=== PATIENT | female | born 1945 | race Caucasian/White ===

== ENCOUNTER 2018-06-26 14:55 | Emergency (ER) | payer MEDICARE, BC ==
--- NOTE | 2018-06-26 16:12 | EDM.PDOC ---
ED HPI GENERAL MEDICAL PROBLEM - General Chief Complaint: Lower Extremity Injury/Pain Stated Complaint: fell, hip pain Time Seen by Provider: 06/26/18 15:40 Source of Information: Reports: Patient History Limitations: Reports: No Limitations - History of Present Illness INITIAL COMMENTS - FREE TEXT/NARRATIVE: Pt states on Saturday at about 1445 her hip gave out and she fell. She denies tripping or blacking out. She states that the hip just went out from under her. Friend stopped to see her today and found her. She has multiple abrasions to her arms, knees and excoriated to perineum and under her breasts. Has abrasion on upper back. Right hip is externally rotated and shortened. Face has abrasion to chin and face is edematous. Has been incontinent of stool and urine. She denies blacking out or hitting head. Denies any other injury. Onset Date: 06/24/18 Onset Time: 14:45 Location: Reports: Lower Extremity, Right Quality: Reports: Sharp Right Hip Pain Score (Numeric/FACES): 3 - Related Data Allergies Allergy/AdvReac Type Severity Reaction Status Date / Time filgrastim [From Neupogen] Allergy Pain Verified 05/25/18 01:46 sulfamethoxazole Allergy Other Verified 05/25/18 01:46 [From Bactrim] trimethoprim [From Bactrim] Allergy Other Verified 05/25/18 01:46 Home Meds: Home Meds Calcium Carbonate/Vitamin D3 [Calcium 600 + Vit D 400] 1 each PO TID 01/04/14 [ History] Furosemide [Lasix] 40 mg PO BID 01/04/14 [History] Multivitamin [Multiple Vitamins] 1 each PO DAILY 01/04/14 [History] Oxybutynin 5 mg PO BID 01/04/14 [History] Potassium Chloride [Klor-Con 10] 20 meq PO DAILY 01/04/14 [History] Warfarin [Coumadin] 5 mg PO MOWEFR 01/04/14 [History] Warfarin [Coumadin] 7.5 mg PO SUTUTHSA 01/04/14 [History] Clobetasol [Clobetasol 0.05%] 1 applic TOP MOWEFR 04/03/18 [History] Magnesium 500 mg PO DAILY 04/03/18 [History] Cholecalciferol (Vitamin D3) [Vitamin D3] 5,000 unit PO DAILY 05/25/18 [History] Past Medical History Cardiovascular History: Reports: Blood Clots/VTE/DVT, Other (See Below) Respiratory History: Reports: PE Hematologic History: Reports: Other (See Below) Oncologic (Cancer) History: Reports: Breast, Colon - Infectious Disease History 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 , MRSA - Past Surgical History Musculoskeletal Surgical History: Reports: Hip Replacement, Knee Replacement Social & Family History - Tobacco Use Smoking Status *Q: Never Smoker - Caffeine Use Caffeine Use: Reports: Coffee, Soda - Recreational Drug Use Recreational Drug Use: No - Living Situation & Occupation Living situation: Reports: , Alone Occupation: Retired Review of Systems - Review of Systems Review Of Systems: See Below Constitutional: Reports: No Symptoms Eyes: Reports: Other (eyes are red) Ears: Reports: No Symptoms Nose: Reports: No Symptoms Mouth/Throat: Reports: No Symptoms Respiratory: Reports: No Symptoms Cardiovascular: Reports: No Symptoms GI/Abdominal: Reports: No Symptoms Genitourinary: Reports: No Symptoms Musculoskeletal: Reports: Joint Pain (right hip) Skin: Reports: Other (see HPI) Neurological: Denies: Confusion, Headache, Numbness, Tingling Psychiatric: Denies: Confusion ED EXAM, GENERAL - Physical Exam Exam: See Below Exam Limited By: No Limitations General Appearance: Alert, WD/WN, Moderate Distress Eye Exam: Bilateral Eye: Conjunctival Injection Ears: Normal External Exam, Normal Canal, Normal TMs Nose: Other (redness to the nose, and chin.) Throat/Mouth: Normal Inspection, Normal Oropharynx Head: Atraumatic, Normocephalic, Facial Swelling. No: Facial Tenderness Neck: Normal Inspection, Supple, Non-Tender, Full Range of Motion Respiratory/Chest: No Respiratory Distress, Lungs Clear, Normal Breath Sounds Cardiovascular: Regular Rate, Rhythm, No Edema GI/Abdominal: Normal Bowel Sounds, Soft, Non-Tender, No Organomegaly, Other ( abdomen is obese) Back Exam: Other (has abrasion to upper back.) Extremities: Normal Range of Motion (to the left lower extremity and to both upper extremities.), Other (right hip is externally rotated and shortened. pulses are intact. ) Neurological: Alert, Oriented Skin Exam: Warm, Dry, Intact Course - Vital Signs Last Recorded V/S: Last Vital Signs Temp 97.2 F 06/26/18 15:23 Pulse 98 06/26/18 15:23 Resp 20 06/26/18 15:23 BP 147/77 H 06/26/18 15:23 Pulse Ox 98 06/26/18 15:23 - Orders/Labs/Meds Orders: Active Orders 24 hr Category Date Time Status Hip Min 2V or 3V w Pelvis Rt [CR] Stat Exams 06/26/18 15:28 Taken INR,PT,PROTHROMBIN TIME [COAG] Stat Lab 06/26/18 15:19 Ordered PTT,PARTIAL THROMBOPLSTIN TIME [COAG] Stat Lab 06/26/18 15:19 Ordered - Re-Assessments/Exams Free Text/Narrative Re-Assessment/Exam: 06/26/18 16:00 Contacted [facility] via one call and discussed case with Dr. Encinas and he did accept the pt on transfer. Informed the pt of the transfer and that she will go ALS ambulance so pain meds can be administered Discussed benefits of transfer to include that specialist would be consulted, and higher level of care available Risks of transfer would include possible MVA risks of not transferring would be further pain and inability to reduce her hip here. Pt voices understanding of this and is agreeable to transfer. Departure - Departure Time of Disposition: 16:30 Disposition: DC/Tfer to Acute Hospital 02 Condition: Fair Clinical Impression: Abrasion, multiple sites Dislocation of hip prosthesis Qualifiers: Encounter type: initial encounter Qualified Code(s): T84.029A - Dislocation of unspecified internal joint prosthesis, initial encounter; Z96.649 - Presence of unspecified artificial hip joint Fall at home Qualifiers: Encounter type: initial encounter Qualified Code(s): W19.XXXA - Unspecified fall, initial encounter; Y92.009 - Unspecified place in unspecified non- institutional (private) residence as the place of occurrence of the external cause - Discharge Information *PRESCRIPTION DRUG MONITORING PROGRAM REVIEWED*: Not Applicable *COPY OF PRESCRIPTION DRUG MONITORING REPORT IN PATIENT JOSHUA: Not Applicable Additional Instructions: Transfer ALS to [facility] ER Fentanyl 50 mg IV prn q1-2 hours as needed for pain NPO until seen in [place] - Problem List & Annotations (1) Dislocation of hip prosthesis SNOMED Code(s): 008896891 Code(s): T84.029A - DISLOCATION OF UNSP INTERNAL JOINT PROSTHESIS, INIT ENCNTR; Z96.649 - PRESENCE OF UNSPECIFIED ARTIFICIAL HIP JOINT Status: Acute Priority: High Qualifiers: Encounter type: initial encounter Qualified Code(s): T84.029A - Dislocation of unspecified internal joint prosthesis, initial encounter; Z96.649 - Presence of unspecified artificial hip joint (2) Abrasion, multiple sites SNOMED Code(s): 324575070, 778203877 Code(s): T07.XXXA - UNSPECIFIED MULTIPLE INJURIES, INITIAL ENCOUNTER Status : Acute Priority: Low (3) Fall at home SNOMED Code(s): 68654236 Code(s): W19.XXXA - UNSPECIFIED FALL, INITIAL ENCOUNTER; Y92.009 - UNSP PLACE IN UNSP NON-INSTITUT (PRIVATE) RESIDENCE PLACE Status: Acute Priority: Low Qualifiers: Encounter type: initial encounter Qualified Code(s): W19.XXXA - Unspecified fall, initial encounter; Y92.009 - Unspecified place in unspecified non-institutional (private) residence as the place of occurrence of the external cause - Problem List Review Problem List Initiated/Reviewed/Updated: Yes - My Orders Last 24 Hours: My Active Orders 06/26/18 15:19 INR,PT,PROTHROMBIN TIME [COAG] Stat PTT,PARTIAL THROMBOPLSTIN TIME [COAG] Stat 06/26/18 15:28 Hip Min 2V or 3V w Pelvis Rt [CR] Stat - Assessment/Plan Last 24 Hours: My Active Orders 06/26/18 15:19 INR,PT,PROTHROMBIN TIME [COAG] Stat PTT,PARTIAL THROMBOPLSTIN TIME [COAG] Stat 06/26/18 15:28 Hip Min 2V or 3V w Pelvis Rt [CR] Stat Plan: Transfer to [facility] ALS
[2018-06-26] MEDS ORDERED: Sodium Chloride 0.9% 10 ML Syringe FLUSH PRN (16:25)
[2018-06-26] MEDS ORDERED: fentaNYL 100 MCG/2 ML SDV IVPUSH PRN (16:27)
[2018-06-26 16:29] LABS: CHLORIDE,CL 104 mEq/L (98-106); SODIUM,NA 141 mEq/L (136-145)
[2018-06-26] MEDS ORDERED: Lactated Ringers 1,000 ML IV SCH (16:30)
[2018-06-26 16:48] VITALS: BP 127/75
== END 2018-06-26 17:08 ==
LOC: CC.ED 14:55
DX: T84.020A Dislocation of internal right hip prosthesis, initial encounter (principal); S20.419A Abrasion of unspecified back wall of thorax, initial encounter; S40.812A Abrasion of left upper arm, initial encounter; S40.811A Abrasion of right upper arm, initial encounter; S80.212A Abrasion, left knee, initial encounter; S80.211A Abrasion, right knee, initial encounter; S20.112A Abrasion of breast, left breast, initial encounter; S20.111A Abrasion of breast, right breast, initial encounter; S30.814A Abrasion of vagina and vulva, initial encounter; S00.81XA Abrasion of other part of head, initial encounter; Z88.1 Allergy status to other antibiotic agents; Z88.2 Allergy status to sulfonamides; Z88.8 Allergy status to other drugs, medicaments and biological substances; Z79.899 Other long term (current) drug therapy; Z79.01 Long term (current) use of anticoagulants; Z96.643 Presence of artificial hip joint, bilateral
CPT/HCPCS: 36415; 51701; 51702; 80053; 82550; 83615; 84484; 85025; 85610; 85730; 93005; 99285; J7120

== ENCOUNTER 2018-07-01 14:14 | Inpatient (IN) | payer MEDICARE, BC ==
[2018-07-01] MEDS ORDERED: traMADol 50 MG Tab PO PRN (17:07)
[2018-07-01] MEDS ORDERED: Acetaminophen 325 MG Tab PO PRN (17:07)
[2018-07-01] MEDS: Calcium Carbonate/Vitamin D3 1250 MG-200 Unit Tab PO SCH ×2 (17:55→19:43)
[2018-07-01] MEDS: Furosemide 40 MG Tab PO SCH (17:56)
[2018-07-01] MEDS: Oxybutynin 5 MG Tab PO SCH (19:43)
[2018-07-01] MEDS: Docusate Sodium 100 MG Cap PO SCH (19:43)
[2018-07-02] MEDS: Calcium Carbonate/Vitamin D3 1250 MG-200 Unit Tab PO SCH ×3 (07:59→19:44)
[2018-07-02] MEDS: Potassium Chloride 10 MEQ Tab.ER PO SCH (08:00)
[2018-07-02] MEDS: Furosemide 40 MG Tab PO SCH ×2 (08:01→16:07)
[2018-07-02] MEDS: Multivitamin Tab PO SCH (08:01)
[2018-07-02] MEDS: Oxybutynin 5 MG Tab PO SCH ×2 (08:02→19:44)
[2018-07-02] MEDS: Cholecalciferol (Vitamin D3) 1,000 Unit Tab PO SCH (08:02)
[2018-07-02] MEDS: Nystatin Topical Powder 15 GM Bottle TOP SCH ×2 (09:40→19:44)
[2018-07-02] MEDS ORDERED: Warfarin 5 MG Tab PO SCH (12:00)
[2018-07-02] MEDS: Warfarin 5 MG Tab PO SCH (13:18)
[2018-07-02] MEDS ORDERED: Nystatin Crm 30 GM Tube TOP SCH (14:00)
--- NOTE | 2018-07-02 17:04 | PCM.HP ---
H&P History of Present Illness - General Date of Service: 07/01/18 Admit Problem/Dx: Admission Diagnosis/Problem Admission Diagnosis/Problem Hip pain Source of Information: Patient, Old Records History Limitations: Reports: No Limitations - History of Present Illness Initial Comments - Free Text/Narative: Patient admitted swing bed from [facility] after having a closed reduction of her right hip prosthesis. Patient had felt her hip give out at home and fell to the ground. Remained down on the floor for close to 48 hours. Was incontinent of urine and stool at that time, had not been able to ear or drink. Was noted to have a superior dislocation of her right hip prosthesis in [place], thus was transferred to [place]. Was dehydrated and had subsequent rhabdomylolysis that was covered with IV fluids. Patient transferred to [place] following the reduction for ongoing physical therapy as only allowed toe touch weight bearing on the right hip. Onset of Symptoms: Reports: Sudden Duration of Symptoms: Reports: Day(s): Location: Reports: Lower Extremity, Right Quality: Reports: Ache, Dull Severity: Moderate Improves with: Reports: Medication, Rest Worsens with: Reports: Movement Associated Symptoms: Reports: No Other Symptoms - Related Data Allergies/Adverse Reactions: Allergies Allergy/AdvReac Type Severity Reaction Status Date / Time filgrastim [From Neupogen] Allergy Pain Verified 07/01/18 15:49 sulfamethoxazole Allergy Hives Verified 07/01/18 15:49 [From Bactrim] trimethoprim [From Bactrim] Allergy Hives Verified 07/01/18 15:49 Home Medications: Home Meds Calcium Carbonate/Vitamin D3 [Calcium 600 + Vit D 400] 1 each PO TID 01/04/14 [ History] Furosemide [Lasix] 40 mg PO BID 01/04/14 [History] Multivitamin [Multiple Vitamins] 1 each PO DAILY 01/04/14 [History] Oxybutynin 5 mg PO BID 01/04/14 [History] Potassium Chloride [Klor-Con 10] 20 meq PO DAILY 01/04/14 [History] Warfarin [Coumadin] 2.5 mg PO TUFR 01/04/14 [History] Warfarin [Coumadin] 5 mg PO SUMOWETHSA 01/04/14 [History] Clobetasol [Clobetasol 0.05%] 1 applic TOP MOWEFR 04/03/18 [History] Acetaminophen [Tylenol] 650 mg PO Q4H PRN 07/01/18 [History] Cholecalciferol (Vitamin D3) [Vitamin D3] 1,000 unit PO DAILY 07/01/18 [History] Docusate Sodium [Stool Softener] 2 tab PO BEDTIME 07/01/18 [History] Magnesium Oxide [Magnesium] 400 mg PO DAILY 07/01/18 [History] traMADol [Ultram] 50 mg PO Q6H PRN 07/01/18 [History] Past Medical History HEENT History: Reports: Cataract Cardiovascular History: Reports: Blood Clots/VTE/DVT Respiratory History: Reports: PE, Sleep Apnea Genitourinary History: Reports: Urinary Incontinence 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: Musculoskeletal History: Reports: Arthritis, Fracture Endocrine/Metabolic History: Reports: Obesity/BMI 30+ Hematologic History: Reports: Blood Transfusion(s), Other (See Below) Other Hematologic History: PEs, DVTs Oncologic (Cancer) History: Reports: Breast, Colon Dermatologic History: Reports: Cellulitis, Other (See Below) Other Dermatologic History: vasculitis - Infectious Disease History Infectious Disease History: Reports: VRE - Past Surgical History HEENT Surgical History: Reports: Cataract Surgery, Tonsillectomy Cardiovascular Surgical History: Reports: None Respiratory Surgical History: Reports: None GI Surgical History: Reports: Appendectomy, Cholecystectomy, Colonoscopy, Polypectomy, Other (See Below) Other GI Surgeries/Procedures: removal of part of colon d/t colon cancer Female Surgical History: Reports: None Endocrine Surgical History: Reports: None Musculoskeletal Surgical History: Reports: Hip Replacement, Knee Replacement Oncologic Surgical History: Reports: Lumpectomy Social & Family History - Family History Family Medical History: Noncontributory - Tobacco Use Smoking Status *Q: Never Smoker Second Hand Smoke Exposure: No - Caffeine Use Caffeine Use: Reports: Coffee, Soda - Recreational Drug Use Recreational Drug Use: No - Living Situation & Occupation Living situation: Reports: , Alone Occupation: Retired H&P Review of Systems - Review of Systems: Review Of Systems: See Below General: Reports: Weakness. Denies: Fever, Chills, Malaise, Decreased Appetite HEENT: Reports: Other (significant cold sores noted, was given Valtrex at [place]) Pulmonary: Denies: Shortness of Breath, Cough Cardiovascular: Reports: Edema. Denies: Chest Pain, Lightheadedness Gastrointestinal: Denies: Abdominal Pain, Constipation, Diarrhea, Decreased Appetite, Nausea, Vomiting Genitourinary: Reports: No Symptoms Musculoskeletal: Reports: Joint Pain Skin: Reports: Bruising, Other (redness to groin and under breasts) Psychiatric: Reports: No Symptoms Neurological: Reports: No Symptoms Exam - Exam Exam: See Below - Vital Signs Vital Signs: Last Vital Signs Temp 97.2 F 07/02/18 07:33 Pulse 64 07/02/18 07:33 Resp 18 07/02/18 07:33 BP 144/69 H 07/02/18 07:33 Pulse Ox 92 L 07/02/18 07:33 Weight: 313 lb - Exam General: Alert, Oriented HEENT: EACs Clear, Mucosa Moist & [place], Posterior Pharynx Clear, Other ( swelling and redness noted with scabbed cold sores to lips. ) Neck: Supple Lungs: Clear to Auscultation, Normal Respiratory Effort Cardiovascular: Regular Rate, Regular Rhythm GI/Abdominal Exam: Normal Bowel Sounds, Soft, Non-Tender Extremities: Pedal Edema, Limited Range of Motion (tender to right hip with limited range of motion) Skin: Other (has bandage noted to right hoyt and right lower abdominal quadrant. Redness and irritation noted under breasts and to groin folds.) Neuro Extensive - Mental Status: Alert, Oriented x3 Psychiatric: Alert, Normal Affect, Normal Mood - Patient Data Lab Results Last 24 hrs: Laboratory Results - last 24 hr 07/02/18 Range/Units 07:00 PT 15.5 H (9.7-12.3) SEC INR 1.54 H (0.92-1.18) - Problem List (1) Status post closed reduction of dislocated total hip prosthesis SNOMED Code(s): 654493230 ICD Code: Z98.890 - OTHER SPECIFIED POSTPROCEDURAL STATES Status: Acute Priority: High Current Visit: Yes (2) Dislocation of hip prosthesis SNOMED Code(s): 798272018 ICD Code: T84.029A - DISLOCATION OF UNSP INTERNAL JOINT PROSTHESIS, INIT ENCNTR; Z96.649 - PRESENCE OF UNSPECIFIED ARTIFICIAL HIP JOINT Status: Acute Priority: High Current Visit: Yes Qualifiers: Encounter type: initial encounter Qualified Code(s): T84.029A - Dislocation of unspecified internal joint prosthesis, initial encounter; Z96.649 - Presence of unspecified artificial hip joint (3) Fall at home SNOMED Code(s): 57623195 ICD Code: W19.XXXA - UNSPECIFIED FALL, INITIAL ENCOUNTER; Y92.009 - UNSP PLACE IN UNSP NON-INSTITUT (PRIVATE) RESIDENCE PLACE Status: Acute Priority: Low Current Visit: Yes Qualifiers: Encounter type: initial encounter Qualified Code(s): W19.XXXA - Unspecified fall, initial encounter; Y92.009 - Unspecified place in unspecified non-institutional (private) residence as the place of occurrence of the external cause Problem List Initiated/Reviewed/Updated: Yes Orders Last 24hrs: Active Orders 24 hr Category Date Time Status Patient Status [ADT] Routine ADT 07/01/18 17:01 Active Oxygen Therapy [RC] .PRN Care 07/01/18 17:01 Active Up With Assistance [RC] .PRN Care 07/01/18 17:01 Active Vital Signs [RC] 0800,2000 Care 07/01/18 17:01 Active PT Evaluation and Treatment [CONS] Routine Cons 07/01/18 17:01 Active Regular Diet [DIET] Diet 07/01/18 Dinner Active INR,PT,PROTHROMBIN TIME [COAG] DAILY Lab 07/03/18 12:22 Ordered INR,PT,PROTHROMBIN TIME [COAG] DAILY Lab 07/04/18 12:22 Ordered INR,PT,PROTHROMBIN TIME [COAG] DAILY Lab 07/05/18 12:22 Ordered INR,PT,PROTHROMBIN TIME [COAG] DAILY Lab 07/06/18 12:22 Ordered INR,PT,PROTHROMBIN TIME [COAG] DAILY Lab 07/07/18 12:22 Ordered UA W/MICROSCOPIC [URIN] Routine Lab 07/03/18 03:00 Ordered VRE (MICHELLE) BY PCR [MREF] Routine Lab 07/04/18 08:00 Ordered VRE (MICHELLE) BY PCR [MREF] Urgent Lab 07/01/18 18:14 Received Acetaminophen [Tylenol] Med 07/01/18 17:07 Active 650 mg PO Q4H PRN Calcium Carbonate/Vitamin D3 [Calcium Carbonate/Vitamin Med 07/01/18 17:30 Active D 1250 MG-200 Unit] 1 tab PO TID Cholecalciferol (Vitamin D3) [Vitamin D3] Med 07/02/18 08:00 Active 1,000 units PO DAILY Clobetasol [Clobetasol 0.05%] Med 07/02/18 17:07 Pending 1 applic TOP MOWEFR Docusate Sodium [Colace] Med 07/01/18 20:00 Active 200 mg PO BEDTIME Furosemide [Lasix] Med 07/01/18 17:30 Active 40 mg PO BIDDIURETIC Magnesium Oxide Med 07/02/18 08:00 Active 500 mg PO DAILY Multivitamins [Tab-A-Stacy] Med 07/02/18 08:00 Active 1 tab PO DAILY Nystatin [Nystop] Med 07/02/18 09:00 Active See Dose Instructions TOP BID Oxybutynin Med 07/01/18 20:00 Active 5 mg PO BID Potassium Chloride [Klor-Con 10] Med 07/02/18 08:00 Active 20 meq PO DAILY Warfarin [Coumadin] Med 07/02/18 12:30 Active 5 mg PO DAILY traMADol [Ultram] Med 07/01/18 17:07 Active 50 mg PO Q6H PRN Resuscitation Status Routine Resus Stat 07/01/18 17:01 Ordered Medication Orders Acetaminophen (Tylenol) 650 mg PO Q4H PRN PRN Reason: Pain Last Admin: 07/02/18 03:19 Dose: 650 mg Calcium Carbonate (Calcium Carbonate/Vitamin D 1250 Mg-200 Unit) 1 tab PO TID [facility] Last Admin: 07/02/18 13:18 Dose: 1 tab Admin: 07/02/18 07:59 Dose: 1 tab Admin: 07/01/18 19:43 Dose: 1 tab Admin: 07/01/18 17:55 Dose: 1 tab Cholecalciferol (Vitamin D3) 1,000 units PO DAILY [facility] Last Admin: 07/02/18 08:02 Dose: 1,000 units Docusate Sodium (Colace) 200 mg PO BEDTIME [facility] Last Admin: 07/01/18 19:43 Dose: 200 mg Furosemide (Lasix) 40 mg PO BIDDIURETIC [facility] Last Admin: 07/02/18 16:07 Dose: 40 mg Admin: 07/02/18 08:01 Dose: 40 mg Admin: 07/01/18 17:56 Dose: Not Given Magnesium Oxide (Magnesium Oxide) 500 mg PO DAILY [facility] Last Admin: 07/02/18 08:01 Dose: 500 mg Multivitamins/Minerals/Vitamin C (Tab-A-Stacy) 1 tab PO DAILY [facility] Last Admin: 07/02/18 08:01 Dose: 1 tab Non-Formulary Medication (Clobetasol [Clobetasol 0.05%]) 1 applic TOP MOWEFR [facility] Nystatin (Nystop) 0 gm TOP BID [facility] Last Admin: 07/02/18 09:40 Dose: 1 applic Oxybutynin Chloride (Oxybutynin) 5 mg PO BID [facility] Last Admin: 07/02/18 08:02 Dose: 5 mg Admin: 07/01/18 19:43 Dose: 5 mg Potassium Chloride (Klor-Con 10) 20 meq PO DAILY [facility] Last Admin: 07/02/18 08:00 Dose: 20 meq Tramadol HCl (Ultram) 50 mg PO Q6H PRN PRN Reason: Pain Warfarin Sodium (Coumadin) 5 mg PO DAILY [facility] Last Admin: 07/02/18 13:18 Dose: 5 mg Assessment/Plan Comment:: S/P Closed reduction of right hip prosthesis Will continue with Physical Therapy. Nursing to assist with transfer due to only toe touch weight bearing to right leg. Nystatin to groin/breast folds. Lovenox BID until INR therapeutic on Coumadin.
[2018-07-02] MEDS: Docusate Sodium 100 MG Cap PO SCH (19:44)
[2018-07-03] MEDS: Potassium Chloride 10 MEQ Tab.ER PO SCH (08:08)
[2018-07-03] MEDS: Multivitamin Tab PO SCH (08:08)
[2018-07-03] MEDS: Cholecalciferol (Vitamin D3) 1,000 Unit Tab PO SCH (08:08)
[2018-07-03] MEDS: Calcium Carbonate/Vitamin D3 1250 MG-200 Unit Tab PO SCH ×3 (08:08→19:33)
[2018-07-03] MEDS: Warfarin 5 MG Tab PO SCH (08:08)
[2018-07-03] MEDS: Oxybutynin 5 MG Tab PO SCH ×2 (08:08→19:33)
[2018-07-03] MEDS: Furosemide 40 MG Tab PO SCH ×2 (08:08→16:23)
[2018-07-03] MEDS: Nystatin Topical Powder 15 GM Bottle TOP SCH ×2 (08:13→19:33)
[2018-07-03] MEDS: ACYCLOVIR 5% TOP SCH ×5 (10:23→19:34)
[2018-07-03] MEDS: CLOBETASOL TOP SCH (10:24)
[2018-07-03] MEDS: Docusate Sodium 100 MG Cap PO SCH (19:33)
[2018-07-04] MEDS: ACYCLOVIR 5% TOP SCH ×6 (08:02→19:30)
[2018-07-04] MEDS: Cholecalciferol (Vitamin D3) 1,000 Unit Tab PO SCH (08:03)
[2018-07-04] MEDS: Calcium Carbonate/Vitamin D3 1250 MG-200 Unit Tab PO SCH ×3 (08:03→19:30)
[2018-07-04] MEDS: Potassium Chloride 10 MEQ Tab.ER PO SCH (08:04)
[2018-07-04] MEDS: Multivitamin Tab PO SCH (08:04)
[2018-07-04] MEDS: Oxybutynin 5 MG Tab PO SCH ×2 (08:04→19:30)
[2018-07-04] MEDS: Furosemide 40 MG Tab PO SCH ×2 (08:04→15:40)
[2018-07-04] MEDS: Warfarin 5 MG Tab PO SCH (10:30)
[2018-07-04] MEDS: Nystatin Topical Powder 15 GM Bottle TOP SCH ×2 (10:31→19:32)
[2018-07-04] MEDS ORDERED: Warfarin 2.5 MG Tab PO SCH (12:00)
[2018-07-04] MEDS: CLOBETASOL TOP SCH ×2 (17:32→19:33)
[2018-07-04] MEDS: Docusate Sodium 100 MG Cap PO SCH (19:30)
[2018-07-05] MEDS: ACYCLOVIR 5% TOP SCH ×5 (07:17→19:17)
[2018-07-05] MEDS: Calcium Carbonate/Vitamin D3 1250 MG-200 Unit Tab PO SCH ×3 (07:18→19:17)
[2018-07-05] MEDS: Multivitamin Tab PO SCH (07:19)
[2018-07-05] MEDS: Cholecalciferol (Vitamin D3) 1,000 Unit Tab PO SCH (07:19)
[2018-07-05] MEDS: Oxybutynin 5 MG Tab PO SCH ×2 (07:19→19:17)
[2018-07-05] MEDS: Potassium Chloride 10 MEQ Tab.ER PO SCH (07:19)
[2018-07-05] MEDS: Furosemide 40 MG Tab PO SCH ×2 (07:20→16:13)
[2018-07-05] MEDS: Warfarin 5 MG Tab PO SCH (09:24)
[2018-07-05] MEDS: Nystatin Topical Powder 15 GM Bottle TOP SCH ×2 (09:25→19:18)
[2018-07-05] MEDS: Docusate Sodium 100 MG Cap PO SCH (19:17)
[2018-07-06] MEDS: ACYCLOVIR 5% TOP SCH ×5 (07:53→19:37)
[2018-07-06] MEDS: Oxybutynin 5 MG Tab PO SCH ×2 (07:54→19:37)
[2018-07-06] MEDS: Calcium Carbonate/Vitamin D3 1250 MG-200 Unit Tab PO SCH ×3 (07:54→19:37)
[2018-07-06] MEDS: Multivitamin Tab PO SCH (07:54)
[2018-07-06] MEDS: Furosemide 40 MG Tab PO SCH ×2 (07:54→17:11)
[2018-07-06] MEDS: Warfarin 5 MG Tab PO SCH (07:54)
[2018-07-06] MEDS: Potassium Chloride 10 MEQ Tab.ER PO SCH (07:54)
[2018-07-06] MEDS: Cholecalciferol (Vitamin D3) 1,000 Unit Tab PO SCH (07:55)
[2018-07-06] MEDS: Nystatin Topical Powder 15 GM Bottle TOP SCH ×2 (07:55→19:38)
[2018-07-06] MEDS: Cefuroxime 250 MG Tab PO SCH (17:11)
[2018-07-06] MEDS: Docusate Sodium 100 MG Cap PO SCH (19:37)
[2018-07-07] MEDS: ACYCLOVIR 5% TOP SCH ×6 (07:27→19:57)
[2018-07-07] MEDS: Furosemide 40 MG Tab PO SCH ×2 (07:32→15:39)
[2018-07-07] MEDS: Potassium Chloride 10 MEQ Tab.ER PO SCH (07:32)
[2018-07-07] MEDS: Cefuroxime 250 MG Tab PO SCH ×2 (07:32→17:42)
[2018-07-07] MEDS: Multivitamin Tab PO SCH (07:32)
[2018-07-07] MEDS: Oxybutynin 5 MG Tab PO SCH ×2 (07:32→19:59)
[2018-07-07] MEDS: Cholecalciferol (Vitamin D3) 1,000 Unit Tab PO SCH (07:32)
[2018-07-07] MEDS: Calcium Carbonate/Vitamin D3 1250 MG-200 Unit Tab PO SCH ×3 (07:33→19:59)
[2018-07-07] MEDS: Warfarin 5 MG Tab PO SCH (07:33)
[2018-07-07] MEDS: Nystatin Topical Powder 15 GM Bottle TOP SCH ×2 (07:33→19:58)
[2018-07-07] MEDS: CLOBETASOL TOP SCH (17:42)
[2018-07-07] MEDS: Docusate Sodium 100 MG Cap PO SCH (19:58)
[2018-07-08] MEDS: ACYCLOVIR 5% TOP SCH ×2 (06:09→09:10)
[2018-07-08 07:24] VITALS: BP 145/52
[2018-07-08] MEDS: Potassium Chloride 10 MEQ Tab.ER PO SCH (07:30)
[2018-07-08] MEDS: Calcium Carbonate/Vitamin D3 1250 MG-200 Unit Tab PO SCH (07:30)
[2018-07-08] MEDS: Oxybutynin 5 MG Tab PO SCH (07:31)
[2018-07-08] MEDS: Multivitamin Tab PO SCH (07:31)
[2018-07-08] MEDS: Cholecalciferol (Vitamin D3) 1,000 Unit Tab PO SCH (07:31)
[2018-07-08] MEDS: Furosemide 40 MG Tab PO SCH (07:31)
[2018-07-08] MEDS: Warfarin 5 MG Tab PO SCH (07:31)
[2018-07-08] MEDS: Cefuroxime 250 MG Tab PO SCH (07:31)
[2018-07-08] MEDS: Nystatin Topical Powder 15 GM Bottle TOP SCH (07:32)
--- NOTE | 2018-07-08 21:02 | PCM.DCSUM1 ---
Discharge Summary - Hospital Course Free Text/Narrative:: Patient was admitted swing bed for strengthening. Patient had fallen at home and had laid on the floor for 2 days before help came. She had dislocated the prosthesis from her hip. Was transferred to [facility] for closed reduction under anesthesia. Patient had subsequent rhabdomyolosis and dehydration that was treated in [place] with IV fluids. Modified Davina Scale: No Symptoms at All Modified [place] Scale Score: 0 - Discharge Data Discharge Date: 07/08/18 Discharge Disposition: Home, Self-Care 01 Condition: Good - Discharge Diagnosis/Problem(s) (1) Status post closed reduction of dislocated total hip prosthesis SNOMED Code(s): 337946184 ICD Code: Z98.890 - OTHER SPECIFIED POSTPROCEDURAL STATES Status: Acute Priority: High (2) Dislocation of hip prosthesis SNOMED Code(s): 732797130 ICD Code: T84.029A - DISLOCATION OF UNSP INTERNAL JOINT PROSTHESIS, INIT ENCNTR; Z96.649 - PRESENCE OF UNSPECIFIED ARTIFICIAL HIP JOINT Status: Acute Priority: High Qualifiers: Encounter type: initial encounter Qualified Code(s): T84.029A - Dislocation of unspecified internal joint prosthesis, initial encounter; Z96.649 - Presence of unspecified artificial hip joint (3) Fall at home SNOMED Code(s): 05274589 ICD Code: W19.XXXA - UNSPECIFIED FALL, INITIAL ENCOUNTER; Y92.009 - UNSP PLACE IN UNSP NON-INSTITUT (PRIVATE) RESIDENCE PLACE Status: Acute Priority: Low Qualifiers: Encounter type: initial encounter Qualified Code(s): W19.XXXA - Unspecified fall, initial encounter; Y92.009 - Unspecified place in unspecified non-institutional (private) residence as the place of occurrence of the external cause - Patient Summary/Data Complications: none Consults: Consultations 07/01/18 17:01 PT Evaluation and Treatment [CONS] Routine Hospital Course: Patient has done well over the last week. Is now transferring in and out of bed per self, walking with a walker and feels steady. Has had issues with yeast infection of the skin in her abdominal folds and groin. Has been covered with nystatin powder. Patient has minimal pain to right hip. Patient will have home health after discharge. Nursing to monitor pain level, ongoing skin concerns, blood pressure and obtain lab to monitor INR. Physical therapy will continue to work with patient for balance, strengthening and ambulation. Patient is homebound due to weakness in legs and difficulty driving because of recent reduction of right hip. Dr. Rojas will oversee home health care. - Patient Instructions Diet: Usual Diet as Tolerated Activity: As Tolerated Other/Special Instructions: INR in one week - Discharge Plan *PRESCRIPTION DRUG MONITORING PROGRAM REVIEWED*: No *COPY OF PRESCRIPTION DRUG MONITORING REPORT IN PATIENT JOSHUA: No Prescriptions/Med Rec: Acyclovir 5% Oint 1 applic TOP 6XDAY 30 Days #1 Cefuroxime Axetil [Ceftin] 250 mg PO BID #14 tablet Nystatin [Nystop] 100,000 unit TOP BID #30 bottle Warfarin Sodium 5 mg PO DAILY #30 tablet Home Medications: Home Meds Calcium Carbonate/Vitamin D3 [Calcium 600 + Vit D 400] 1 each PO TID 01/04/14 [ History] Furosemide [Lasix] 40 mg PO BID 01/04/14 [History] Multivitamin [Multiple Vitamins] 1 each PO DAILY 01/04/14 [History] Oxybutynin 5 mg PO BID 01/04/14 [History] Potassium Chloride [Klor-Con 10] 20 meq PO DAILY 01/04/14 [History] Clobetasol [Clobetasol 0.05%] 1 applic TOP MOWEFR 04/03/18 [History] Acetaminophen [Tylenol] 650 mg PO Q4H PRN 07/01/18 [History] Cholecalciferol (Vitamin D3) [Vitamin D3] 1,000 unit PO DAILY 07/01/18 [History] Docusate Sodium [Stool Softener] 2 tab PO BEDTIME 07/01/18 [History] Magnesium Oxide [Magnesium] 400 mg PO DAILY 07/01/18 [History] traMADol [Ultram] 50 mg PO Q6H PRN 07/01/18 [History] Acyclovir 5% Oint 1 applic TOP 6XDAY 30 Days #1 07/08/18 [Rx] Cefuroxime Axetil [Ceftin] 250 mg PO BID #14 tablet 07/08/18 [Rx] Nystatin [Nystop] 100,000 unit TOP BID #30 bottle 07/08/18 [Rx] Warfarin Sodium 5 mg PO DAILY #30 tablet 07/08/18 [Rx] Referrals: [facility] [Outside] Jacqueline Hooker PA [ED Midlevel Provider] - (Follow up with Heather in 2 weeks.) - Discharge Summary/Plan Comment DC Time >30 min.: No Discharge Summary/Plan Comment: Discharge home Continue with home health. Follow up with Dr. Rojas in 10 days. Home health to obtain INR on Saturday due to recent adjustments of Coumadin. - General Info Date of Service: 07/08/18 Admission Dx/Problem (Free Text: Admission Diagnosis/Problem Admission Diagnosis/Problem Hip pain Functional Status: Reports: Pain Controlled, Tolerating Diet, Ambulating - Review of Systems General: Reports: Weakness. Denies: Fever, Fatigue HEENT: Reports: No Symptoms Pulmonary: Denies: Shortness of Breath, Cough Cardiovascular: Denies: Chest Pain, Edema, Lightheadedness Gastrointestinal: Denies: Abdominal Pain, Nausea, Vomiting Genitourinary: Reports: No Symptoms Musculoskeletal: Reports: Joint Pain Neurological: Reports: No Symptoms - Patient Data Vitals - Most Recent: Last Vital Signs Temp 97.3 F 07/08/18 07:23 Pulse 61 07/08/18 07:23 Resp 18 07/08/18 07:23 BP 145/52 H 07/08/18 07:23 Pulse Ox 96 07/08/18 07:23 Weight - Most Recent: 305 lb 14.4 oz [place] Results - Last 24 hrs: Microbiology 07/05/18 11:43 Vancomycin Resist Enterococci (PCR) - Final Rectal Swab Med Orders - Current: Current Medications Discontinued Medications Acetaminophen (Tylenol) 650 mg PO Q4H PRN PRN Reason: Pain Last Admin: 07/02/18 03:19 Dose: 650 mg Calcium Carbonate (Calcium Carbonate/Vitamin D 1250 Mg-200 Unit) 1 tab PO TID [facility] Last Admin: 07/08/18 07:30 Dose: 1 tab Cefuroxime Axetil (Ceftin) 250 mg PO BIDMEALS [facility] Last Admin: 07/08/18 07:31 Dose: 250 mg Cholecalciferol (Vitamin D3) 1,000 units PO DAILY [facility] Last Admin: 07/08/18 07:31 Dose: 1,000 units Docusate Sodium (Colace) 200 mg PO BEDTIME [facility] Last Admin: 07/07/18 19:58 Dose: 200 mg Furosemide (Lasix) 40 mg PO BIDDIURETIC [facility] Last Admin: 07/08/18 07:31 Dose: 40 mg Magnesium Oxide (Magnesium Oxide) 500 mg PO DAILY [facility] Last Admin: 07/08/18 07:30 Dose: 500 mg Multivitamins/Minerals/Vitamin C (Tab-A-Stacy) 1 tab PO DAILY [facility] Last Admin: 07/08/18 07:31 Dose: 1 tab Ptom Clobetasol [Clobetasol 0.05%] Ointment 1 applic TOP MOWEFR [facility] Last Admin: 07/07/18 17:42 Dose: 1 applic Own Med Acyclovir 5% Oint 1 Applic 15gm Tube 1 applic TOP 6XDAY [facility] Last Admin: 07/08/18 09:10 Dose: 1 applic Nystatin (Nystop) 0 gm TOP BID [facility] Last Admin: 07/08/18 07:32 Dose: 1 applic Nystatin (Nystatin Crm) 0 gm TOP TID [facility] Oxybutynin Chloride (Oxybutynin) 5 mg PO BID [facility] Last Admin: 07/08/18 07:31 Dose: 5 mg Potassium Chloride (Klor-Con 10) 20 meq PO DAILY [facility] Last Admin: 07/08/18 07:30 Dose: 20 meq Tramadol HCl (Ultram) 50 mg PO Q6H PRN PRN Reason: Pain Warfarin Sodium (Coumadin) 2.5 mg PO TuFr@1200 [facility] Warfarin Sodium (Coumadin) 5 mg PO SuMoWeThSa@1200 [facility] Last Admin: 07/02/18 12:46 Dose: Not Given Warfarin Sodium (Coumadin) 5 mg PO DAILY [facility] Last Admin: 07/08/18 07:31 Dose: 5 mg - Exam General: Reports: Alert, Oriented HEENT: Reports: Mucous Membr. Moist/[place] Neck: Reports: Supple Lungs: Reports: Clear to Auscultation, Normal Respiratory Effort Cardiovascular: Reports: Regular Rate, Regular Rhythm GI/Abdominal Exam: Normal Bowel Sounds, Soft, Non-Tender Skin: Reports: Other (redness in groin and abdominal folds) Neurological: Reports: No New Focal Deficit
== END 2018-07-08 11:10 | disposition home or self-care (01) | DRG 560 ==
LOC: UNDOADMIN 16:17 → CC.MS 16:17 → UNDOADMIN 17:01 → CC.MS 17:01
PROVIDERS: ADMIT Family Medicine; ATTEND Family Medicine
DX: Z47.89 Encounter for other orthopedic aftercare (principal); T84.020A Dislocation of internal right hip prosthesis, initial encounter; R53.1 Weakness; W19.XXXA Unspecified fall, initial encounter; R32 Unspecified urinary incontinence; M19.90 Unspecified osteoarthritis, unspecified site; E66.9 Obesity, unspecified; G47.30 Sleep apnea, unspecified; Z90.49 Acquired absence of other specified parts of digestive tract; Z86.010 Personal history of colon polyps; Z96.641 Presence of right artificial hip joint; Z88.1 Allergy status to other antibiotic agents; Z88.2 Allergy status to sulfonamides; Z88.8 Allergy status to other drugs, medicaments and biological substances; Z79.899 Other long term (current) drug therapy; Z86.718 Personal history of other venous thrombosis and embolism; Z86.711 Personal history of pulmonary embolism; Z85.3 Personal history of malignant neoplasm of breast; Z85.038 Personal history of other malignant neoplasm of large intestine; Z79.01 Long term (current) use of anticoagulants; Z96.659 Presence of unspecified artificial knee joint
CPT/HCPCS: 36415; 81001; 85610; 87086; 87088; 87186; 87500; 97110-GP; 97116-GP; 97161-GP; 97530-GP; A9270-GY

== ENCOUNTER 2020-05-16 19:37 | Emergency (ER) | payer MEDICARE, BC ==
[2020-05-16] MEDS ORDERED: Aspirin 81 MG Tab.Chew PO ONE (19:59)
[2020-05-16 20:27] VITALS: BP 148/62; PULSE 60
[2020-05-16 20:27] LABS: CHLORIDE,CL 108 mEq/L (98-106); SODIUM,NA 144 mEq/L (136-145)
[2020-05-16 20:38] LABS: PTT,PARTIAL THROMBOPLSTIN TIME 27.4 SEC (23.2-32.3)
--- NOTE | 2020-05-16 21:06 | EDM.PDOC ---
ED HPI GENERAL MEDICAL PROBLEM - General Chief Complaint: General Stated Complaint: "I JUST DON'T FEEL GOOD" Time Seen by Provider: 05/16/20 20:09 Source of Information: Reports: Patient History Limitations: Reports: No Limitations - History of Present Illness INITIAL COMMENTS - FREE TEXT/NARRATIVE: Teresa is a 74 yo female who presents to the ED via private vehicle with concern s of just not feeling well. States she woke up around 0300 this morning with a pain in the left side of her neck. states it didn't feel musculoskeletal. States it didn't last long and she was able to go right back to sleep. States she woke up this morning feeling well and went to work. States she ate breakfast and that was okay. Around lunch she states she didn't have much of an appetite. This aft ernoon around 1500 she started to feel the neck pain again and last for a few hours. States currently she is feeling great. No symptoms upon arrival. Left Jaw Pain Score (Numeric/FACES): 1 - Related Data Allergies Allergy/AdvReac Type Severity Reaction Status Date / Time filgrastim [From Neupogen] Allergy Pain Verified 05/16/20 19:44 sulfamethoxazole Allergy Hives Verified 05/16/20 19:44 [From Bactrim] trimethoprim [From Bactrim] Allergy Hives Verified 05/16/20 19:44 Home Meds: Home Meds Calcium Carbonate/Vitamin D3 [Calcium 600 + Vit D 400] 1 each PO TID 01/04/14 [History] Furosemide [Lasix] 40 mg PO BID 01/04/14 [History] Multivitamin [Multiple Vitamins] 1 each PO DAILY 01/04/14 [History] Oxybutynin 5 mg PO BID 01/04/14 [History] Potassium Chloride [Klor-Con 10] 20 meq PO DAILY 01/04/14 [History] Clobetasol [Clobetasol 0.05%] 1 applic TOP MOWEFR 04/03/18 [History] Acetaminophen [Tylenol] 650 mg PO Q4H PRN 07/01/18 [History] Cholecalciferol (Vitamin D3) [Vitamin D3] 1,000 unit PO DAILY 07/01/18 [History] Docusate Sodium [Stool Softener] 2 tab PO BEDTIME 07/01/18 [History] Magnesium Oxide [Magnesium] 400 mg PO DAILY 07/01/18 [History] Warfarin Sodium 5 mg PO ASDIRECTED 05/16/20 [History] Warfarin [Coumadin] 7.5 mg PO ASDIRECTED 05/16/20 [History] Past Medical History HEENT History: Reports: Cataract Cardiovascular History: Reports: Blood Clots/VTE/DVT, Heart Failure, Other (See Below) Other Cardiovascular History: lexiscan and angiogram spring 2019 Respiratory History: Reports: PE, Sleep Apnea, Other (See Below) Other Respiratory History: hx ARDS Genitourinary History: Reports: Urinary Incontinence [employer] History: Reports: Musculoskeletal History: Reports: Arthritis, Fracture Endocrine/Metabolic History: Reports: Obesity/BMI 30+ Hematologic History: Reports: Blood Transfusion(s), Other (See Below) Other Hematologic History: PEs, DVTs Oncologic (Cancer) History: Reports: Breast, Colon Dermatologic History: Reports: Cellulitis, Other (See Below) Other Dermatologic History: vasculitis - Infectious Disease History Infectious Disease History: Reports: VRE - Past Surgical History HEENT Surgical History: Reports: Cataract Surgery, Tonsillectomy Cardiovascular Surgical History: Reports: None Respiratory Surgical History: Reports: None GI Surgical History: Reports: Appendectomy, Cholecystectomy, Colonoscopy, Polypectomy, Other (See Below) Other GI Surgeries/Procedures: removal of part of colon d/t colon cancer Female Surgical History: Reports: None Endocrine Surgical History: Reports: None Musculoskeletal Surgical History: Reports: Hip Replacement, Knee Replacement Oncologic Surgical History: Reports: Lumpectomy Social & Family History - Family History Family Medical History: Noncontributory - Tobacco Use Smoking Status *Q: Never Smoker Second Hand Smoke Exposure: No - Caffeine Use Caffeine Use: Reports: Coffee Other Caffeine Use: one cup coffee daily usually - Recreational Drug Use Recreational Drug Use: No - Living Situation & Occupation Living situation: Reports: , Alone Occupation: Retired ED ROS GENERAL - Review of Systems Review Of Systems: See Below Constitutional: Reports: Decreased Appetite. Denies: Fever, Chills HEENT: Reports: No Symptoms. Denies: Ear Pain, Rhinitis, Throat Pain Respiratory: Reports: Shortness of Breath. Denies: Wheezing, Cough Cardiovascular: Reports: Dyspnea on Exertion, Edema. Denies: Chest Pain, Lightheadedness, Palpitations GI/Abdominal: Denies: Abdominal Pain, Bloody Stool, Constipation, Diarrhea, Nausea, Vomiting Musculoskeletal: Reports: Neck Pain (subsided, left lateral, no discomfort with ROM) Skin: Reports: No Symptoms Neurological: Reports: No Symptoms ED EXAM, GENERAL - Physical Exam Exam: See Below Exam Limited By: No Limitations General Appearance: Alert, No Apparent Distress, Obese Ears: Normal External Exam, Normal Canal, Hearing Grossly Normal, Normal TMs Nose: Normal Inspection, Normal Mucosa, No Blood Throat/Mouth: Normal Inspection, Normal Lips, Normal Teeth, Normal Gums, Normal Oropharynx, Normal Voice, No Airway Compromise Head: Atraumatic, Normocephalic Neck: Normal Inspection, Supple, Non-Tender. No: Lymphadenopathy (L), Lymphadenopathy (R), Tender Lateral, Thyromegaly Respiratory/Chest: No Respiratory Distress, Lungs Clear, Normal Breath Sounds, No Accessory Muscle Use, Chest Non-Tender Cardiovascular: Regular Rate, Rhythm, No Murmur GI/Abdominal: Normal Bowel Sounds, Soft, Non-Tender Extremities: Non-Tender, Pedal Edema (chronic stasis dermatitis, 2+ edema bilaterally) Neurological: Alert, Oriented, Normal Cognition, No Motor/Sensory Deficits Psychiatric: Normal Affect, Normal Mood Skin Exam: Warm, Dry, Intact, Normal Color, No Rash Course - Vital Signs Last Recorded V/S: Last Vital Signs Temp 98.4 F 05/16/20 20:25 Pulse 60 05/16/20 20:25 Resp 15 05/16/20 20:25 BP 148/62 H 05/16/20 20:25 Pulse Ox 98 05/16/20 20:25 - Orders/Labs/Meds Orders: Active Orders 24 hr Category Date Time Status CXR [Chest 2V] [CR] Stat Exams 05/16/20 20:00 Taken Labs: Laboratory Tests 05/16/20 05/16/20 05/16/20 Range/Units 20:05 20:05 20:05 WBC 9.7 (5.0-10.0) 10^3/uL RBC 4.03 (4.00-5.50) 10^6/uL Hgb 13.2 (12.0-16.0) g/dL Hct 39.2 (37.0-47.0) % MCV 97.3 H (82.0-94.0) fL MCH 32.8 H (27.0-32.0) pg MCHC 33.7 (33.0-38.0) g/dL RDW Coeff of Grady 13.9 (11.0-15.0) % Plt Count 243 (150-400) 10^3/uL Neut % (Auto) 67.1 (35-85) % Lymph % (Auto) 21.1 (10-55) % Cobb % (Auto) 11.0 (0-16) % Eos % (Auto) 0.6 (0-5) % Baso % (Auto) 0.2 (0-3) % Neut # (Auto) 6.51 (1.80-7.00) 10^3/uL Lymph # (Auto) 2.05 (1.00-4.80) 10^3/uL Cobb # (Auto) 1.07 H (0.00-0.80) 10^3/uL Eos # (Auto) 0.06 (0.00-0.45) 10^3/uL Baso # (Auto) 0.02 10^3/uL PT 16.1 H (9.7-12.3) SEC INR 1.60 H (0.92-1.18) APTT 27.4 (23.2-32.3) SEC D-Dimer, Quantitative 0.39 (0.00-0.50) Sodium 144 (136-145) mEq/L Potassium 4.4 (3.5-5.0) mEq/L Chloride 108 H (98-106) mEq/L Carbon Dioxide 28 (21-32) mmol/L BUN 21 H (7-18) mg/dL Creatinine 1.2 H (0.6-1.0) mg/dL Est Cr Clr Drug Dosing 37.92 mL/min Estimated GFR (MDRD) 44 L (>=60) mL/min Glucose 108 H (75-99) mg/dL Calcium 9.0 (8.4-10.1) mg/dL Total Bilirubin 0.5 (0.0-1.0) mg/dL AST 15 (15-37) U/L ALT 20 (12-78) U/L Alkaline Phosphatase 64 (46-116) U/L Lactate Dehydrogenase 168 (100-190) U/L Creatine Kinase 44 (21-215) U/L Troponin I < 0.017 (0.00-0.06) ng/mL C-Reactive Protein < 0.2 L (0.2-0.8) mg/dL Total Protein 7.2 (6.4-8.2) g/dL Albumin 3.4 (3.4-5.0) g/dL Lipase 71 L (73-393) U/L Meds: Medications Discontinued Medications Generic Name Dose Route Start Last Admin Trade Name Marquis PRN Reason Stop Dose Admin Aspirin 324 mg 05/16/20 19:59 05/16/20 20:02 Aspirin PO 05/16/20 20:00 324 mg ONETIME ONE Administration Departure - Departure Time of Disposition: 21:03 Disposition: Home, Self-Care 01 Clinical Impression: General ill feeling, Neck pain on left side - Discharge Information Referrals: PCP,None [Primary Care Provider] - Forms: ED Department Discharge Additional Instructions: 1) If symptoms return or any worsening of symptoms, recommend reevaluation 2) Encourage staying hydrated 3) Rest tonight 4) If any concerns may call at [phone] or return to ED. 5) Follow up with primary this week Sepsis Event Note (ED) - Evaluation Sepsis Screening Result: No Definite Risk - Focused Exam Vital Signs: Vital Signs Temp Pulse Resp BP Pulse Ox 05/16/20 20:25 98.4 F 60 15 148/62 H 98 05/16/20 20:00 74 14 150/80 H 99 05/16/20 19:38 98.7 F 75 16 160/92 H 98 - Problem List & Annotations (1) General ill feeling SNOMED Code(s): 079429566 Code(s): R68.89 - OTHER GENERAL SYMPTOMS AND SIGNS Status: Acute Current Visit: Yes (2) Neck pain on left side SNOMED Code(s): 64822004 Code(s): M54.2 - CERVICALGIA Status: Acute Current Visit: Yes - My Orders Last 24 Hours: My Active Orders 05/16/20 20:00 CXR [Chest 2V] [CR] Stat - Assessment/Plan Last 24 Hours: My Active Orders 05/16/20 20:00 CXR [Chest 2V] [CR] Stat Plan: Upon arrival all symptoms have subsided. EKG showed NSR. Chest x-ray stable, no acute cardiopulmonary disease noted. Labs grossly unremarkable. Cardiac work up negative. No definitive cause of symptoms earlier. Will discharge in satisfactory condition.
== END 2020-05-16 21:15 | disposition home or self-care (01) ==
LOC: CC.ED 19:37
DX: M54.2 Cervicalgia (principal); R69 Illness, unspecified; I50.9 Heart failure, unspecified; M19.90 Unspecified osteoarthritis, unspecified site; E66.9 Obesity, unspecified; Z68.43 Body mass index [BMI] 50.0-59.9, adult; Z88.2 Allergy status to sulfonamides; Z88.1 Allergy status to other antibiotic agents; Z79.01 Long term (current) use of anticoagulants; Z86.718 Personal history of other venous thrombosis and embolism; Z86.711 Personal history of pulmonary embolism
CPT/HCPCS: 36415; 71046; 80053; 82550; 83615; 83690; 84484; 85025; 85379; 85610; 85730; 86140; 93005; 93010; 99284; 99284-25; A9270-GY

== ENCOUNTER 2021-08-15 14:12 | Emergency (ER) | payer MEDICARE, BC ==
[2021-08-15] MEDS ORDERED: HYDROmorphone 1 MG/ML Syringe SUBCUT ONE (14:46)
[2021-08-15] MEDS ORDERED: HYDROmorphone 1 MG/ML Syringe ONE (15:10)
[2021-08-15] MEDS ORDERED: fentaNYL 50 MCG/ML SDV IVPUSH ONE (16:12)
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
[2021-08-15 18:31] VITALS: BP 195/83; PULSE 90
== END 2021-08-15 16:35 | disposition critical access hospital (66) ==
LOC: CC.ED 14:12
DX: S73.004A Unspecified dislocation of right hip, initial encounter (principal); I50.9 Heart failure, unspecified; E66.9 Obesity, unspecified; Z68.37 Body mass index [BMI] 37.0-37.9, adult; Z79.899 Other long term (current) drug therapy; X50.0XXA Overexertion from strenuous movement or load, initial encounter
CPT/HCPCS: 36415; 51702; 73502; 80048; 85025; 85610; 96372; 96374; 99285; J1170; J3010

== ENCOUNTER 2022-06-25 22:35 | Emergency (ER) | payer MEDICARE, BC ==
[2022-06-26] MEDS ORDERED: Morphine 4 MG/ML VIAL IM ONE ×2 (00:11→00:36)
[2022-06-26 00:34] VITALS: BP 144/46; PULSE 76
== END 2022-06-26 01:10 ==
LOC: CC.ED 22:35
DX: T84.020A Dislocation of internal right hip prosthesis, initial encounter (principal); I87.2 Venous insufficiency (chronic) (peripheral); I11.0 Hypertensive heart disease with heart failure; I50.9 Heart failure, unspecified; Z88.1 Allergy status to other antibiotic agents; Z88.8 Allergy status to other drugs, medicaments and biological substances; Z79.01 Long term (current) use of anticoagulants; Z79.899 Other long term (current) drug therapy
CPT/HCPCS: 96372; 99284; J2270

== ENCOUNTER 2025-02-12 13:56 | Observation (INO) | payer MEDICARE, BC ==
[2025-02-12] MEDS ORDERED: Ondansetron 4 MG Tab.DIS PO PRN (14:45)
[2025-02-12 14:48] LABS: APPEARANCE,URINE CLEAR (CLEAR); BILIRUBIN,URINE NEGATIVE (NEGATIVE); COLOR,URINE YELLOW (YELLOW); GLUCOSE,URINE NEGATIVE (NEGATIVE); KETONES,URINE NEGATIVE (NEGATIVE); LEUKOCYTE ESTERASE,URINE NEGATIVE (NEGATIVE); NITRITE,URINE NEGATIVE (NEGATIVE); OCCULT BLOOD,URINE NEGATIVE (NEGATIVE); PH,URINE 5.5 (4.5-8.0); PROTEIN,URINE NEGATIVE (NEGATIVE); UROBILINOGEN,URINE 0.2 EU/dL (0.2-1.0)
[2025-02-12 15:02] LABS: COLOR,URINE YELLOW (YELLOW)
[2025-02-12 15:03] LABS: APPEARANCE,URINE CLEAR (CLEAR); BACTERIA,URINE NOT SEEN /HPF (NOT SEEN); BILIRUBIN,URINE NEGATIVE (NEGATIVE); EPITHELIAL CELLS,URINE OCCASIONAL /HPF (NOT SEEN); GLUCOSE,URINE NEGATIVE (NEGATIVE); KETONES,URINE NEGATIVE (NEGATIVE); LEUKOCYTE ESTERASE,URINE NEGATIVE (NEGATIVE); MUCUS,URINE NOT SEEN /HPF (NOT SEEN); NITRITE,URINE NEGATIVE (NEGATIVE); OCCULT BLOOD,URINE NEGATIVE (NEGATIVE); PH,URINE 5.5 (4.5-8.0); PROTEIN,URINE NEGATIVE (NEGATIVE); RBC,URINE NOT SEEN /HPF (0-5); UROBILINOGEN,URINE 0.2 EU/dL (0.2-1.0); WBC,URINE NOT SEEN /HPF (0-5)
[2025-02-12 15:05] LABS: BASOPHILS ABSOLUTE AUTO 0.07 10^3/uL (0.00-0.50); BASOPHILS PERCENT AUTO 0.8 % (0-1); EOSINOPHILS PERCENT AUTO 1.1 % (0-6); HEMATOCRIT 23.8 % (37.0-47.0); HEMOGLOBIN 7.7 g/dL (12.0-16.0); IMMATURE GRAN ABSOLUTE AUTO 0.09 10^3/uL (0.00-0.49); LYMPHOCYTES ABSOLUTE AUTO 2.11 10^3/uL (0.60-5.00); LYMPHOCYTES PERCENT AUTO 23.2 % (24-44); MEAN CORPUSCULAR HEMOGLOBIN 32.2 pg (27.0-32.0); MEAN CORPUSCULAR HGB CONC 32.4 g/dL (32.0-36.0); MEAN CORPUSCULAR VOLUME 99.6 fL (83.0-97.0); MONOCYTES ABSOLUTE AUTO 1.23 10^3/uL (0.00-1.50); MONOCYTES PERCENT AUTO 13.5 % (0-10); NEUTROPHILS ABSOLUTE AUTO 5.51 x10^3/uL (1.80-8.00); NEUTROPHILS PERCENT AUTO 60.4 % (41-71); PLATELET COUNT,PLT 361 10^3/uL (150-400); RED BLOOD CELL COUNT 2.39 x10^6/uL (4.00-5.50); WHITE BLOOD CELL COUNT,WBC 9.1 10^3/uL (4.0-11.0)
[2025-02-12 15:17] LABS: ALANINE AMINOTRANSFERASE,ALT 32 U/L (12-78); ALBUMIN 2.4 g/dL (3.4-5.0); ALKALINE PHOSPHATASE 97 U/L (46-116); ASPARTATE AMNIOTRANSFERASE,AST 23 U/L (15-37); BILIRUBIN TOTAL 0.5 mg/dL (0.0-1.0); BLOOD UREA NITROGEN,BUN 27 mg/dL (7-18); C-REACTIVE PROTEIN 8.86 mg/dL (<=0.50); CALCIUM 8.8 mg/dL (8.4-10.1); CARBON DIOXIDE,CO2 29 mmol/L (21-32); CHLORIDE,CL 107 mEq/L (98-106); CREATININE 1.3 mg/dL (0.6-1.0); ESTIMATED GFR 42 mL/min (>=60); GLUCOSE RANDOM 112 mg/dL (75-99); POTASSIUM,K 5.1 mEq/L (3.5-5.0); PROTEIN TOTAL,TP 6.9 g/dL (6.4-8.2); SODIUM,NA 144 mEq/L (136-145)
[2025-02-12 15:22] LABS: PROTHROMBIN TIME 44.5 SEC (9.3-11.3)
[2025-02-12 15:24] LABS: INR 4.81 (0.92-1.18)
[2025-02-12] MEDS: Furosemide 40 MG Tab PO SCH (16:18)
[2025-02-12] MEDS: Melatonin 3 MG Tab PO SCH (19:35)
[2025-02-12] MEDS: Fish Oil/Omega-3 Fatty Acids 1 Gm Cap PO SCH (19:35)
[2025-02-12] MEDS: Losartan 25 MG Tab PO SCH (19:35)
[2025-02-12] MEDS: Docusate Sodium 100 MG Cap PO SCH (19:35)
[2025-02-12] MEDS: Acetaminophen 325 MG Tab PO PRN (19:46)
[2025-02-13] MEDS: Multivitamin Tab PO SCH (07:33)
[2025-02-13] MEDS: Magnesium Oxide 400 MG Tab PO SCH (07:34)
[2025-02-13] MEDS: Cholecalciferol (Vitamin D3) 5,000 UNIT Tab PO SCH (07:34)
[2025-02-13 07:39] VITALS: BP 138/58
[2025-02-13] MEDS: amLODIPine 10 MG Tab PO SCH (07:39)
[2025-02-13 07:42] VITALS: PULSE 75
[2025-02-13 07:48] LABS: BASOPHILS ABSOLUTE AUTO 0.07 10^3/uL (0.00-0.50); BASOPHILS PERCENT AUTO 0.8 % (0-1); EOSINOPHILS ABSOLUTE AUTO 0.11 10^3/uL (0.00-1.50); EOSINOPHILS PERCENT AUTO 1.3 % (0-6); HEMATOCRIT 24.3 % (37.0-47.0); HEMOGLOBIN 7.8 g/dL (12.0-16.0); IMMATURE GRAN ABSOLUTE AUTO 0.11 10^3/uL (0.00-0.49); IMMATURE GRAN PERCENT AUTO 1.3 % (0.0-4.9); LYMPHOCYTES ABSOLUTE AUTO 2.05 10^3/uL (0.60-5.00); LYMPHOCYTES PERCENT AUTO 23.3 % (24-44); MEAN CORPUSCULAR HEMOGLOBIN 31.8 pg (27.0-32.0); MEAN CORPUSCULAR HGB CONC 32.1 g/dL (32.0-36.0); MEAN CORPUSCULAR VOLUME 99.2 fL (83.0-97.0); MONOCYTES ABSOLUTE AUTO 1.03 10^3/uL (0.00-1.50); MONOCYTES PERCENT AUTO 11.7 % (0-10); NEUTROPHILS ABSOLUTE AUTO 5.43 x10^3/uL (1.80-8.00); NEUTROPHILS PERCENT AUTO 61.6 % (41-71); PLATELET COUNT,PLT 396 10^3/uL (150-400); RED BLOOD CELL COUNT 2.45 x10^6/uL (4.00-5.50); WHITE BLOOD CELL COUNT,WBC 8.8 10^3/uL (4.0-11.0)
[2025-02-13 07:57] LABS: INR 3.62 (0.92-1.18); PROTHROMBIN TIME 34.2 SEC (9.3-11.3)
[2025-02-13 09:32] LABS: ALANINE AMINOTRANSFERASE,ALT 28 U/L (12-78); ALBUMIN 2.5 g/dL (3.4-5.0); ALKALINE PHOSPHATASE 94 U/L (46-116); ASPARTATE AMNIOTRANSFERASE,AST 24 U/L (15-37); BILIRUBIN TOTAL 0.6 mg/dL (0.0-1.0); BLOOD UREA NITROGEN,BUN 21 mg/dL (7-18); CALCIUM 9.2 mg/dL (8.4-10.1); CARBON DIOXIDE,CO2 27 mmol/L (21-32); CHLORIDE,CL 107 mEq/L (98-106); CREATININE 1.1 mg/dL (0.6-1.0); ESTIMATED GFR 51 mL/min (>=60); GLUCOSE RANDOM 97 mg/dL (75-99); POTASSIUM,K 4.9 mEq/L (3.5-5.0); PROTEIN TOTAL,TP 6.9 g/dL (6.4-8.2); SODIUM,NA 143 mEq/L (136-145)
[2025-02-13] MEDS ORDERED: Rosuvastatin 10 MG Tab PO SCH (20:00)
== END 2025-02-13 11:10 | disposition home or self-care (01) ==
LOC: CC.MS 13:56 → UNDOADMOB 13:56 → CC.MS 14:45
PROVIDERS: ADMIT Physician Assistant Medical; ATTEND Physician Assistant Medical
DX: R53.1 Weakness (principal); I11.0 Hypertensive heart disease with heart failure; I50.9 Heart failure, unspecified; Z79.899 Other long term (current) drug therapy; Z88.2 Allergy status to sulfonamides
CPT/HCPCS: 36415; 80053; 81001; 81003; 82270; 82272; 85025; 85610; 86140; 99223; 99239; A9270-GY; G0378

== ENCOUNTER 2025-09-29 14:08 | Emergency (ER) | payer MEDICARE, BC ==
[2025-09-29 14:42] LABS: BASOPHILS ABSOLUTE AUTO 0.06 10^3/uL (0.00-0.50); BASOPHILS PERCENT AUTO 0.6 % (0-1); EOSINOPHILS ABSOLUTE AUTO 0.03 10^3/uL (0.00-1.50); EOSINOPHILS PERCENT AUTO 0.3 % (0-6); IMMATURE GRAN ABSOLUTE AUTO 0.15 10^3/uL (0.00-0.49); IMMATURE GRAN PERCENT AUTO 1.4 % (0.0-4.9); LYMPHOCYTES ABSOLUTE AUTO 4.34 10^3/uL (0.60-5.00); LYMPHOCYTES PERCENT AUTO 39.9 % (24-44); MONOCYTES ABSOLUTE AUTO 1.23 10^3/uL (0.00-1.50); MONOCYTES PERCENT AUTO 11.3 % (0-10); NEUTROPHILS ABSOLUTE AUTO 5.07 x10^3/uL (1.80-8.00); NEUTROPHILS PERCENT AUTO 46.5 % (41-71); PLATELET COUNT,PLT 304 10^3/uL (150-400); RED BLOOD CELL COUNT 3.63 x10^6/uL (4.00-5.50); WHITE BLOOD CELL COUNT,WBC 10.9 10^3/uL (4.0-11.0)
[2025-09-29 14:55] LABS: APPEARANCE,URINE CLEAR (CLEAR); GLUCOSE,URINE NEGATIVE (NEGATIVE)
[2025-09-29 15:02] LABS: ALANINE AMINOTRANSFERASE,ALT 35 U/L (12-78); ASPARTATE AMNIOTRANSFERASE,AST 28 U/L (15-37); BILIRUBIN TOTAL 0.4 mg/dL (0.0-1.0); BLOOD UREA NITROGEN,BUN 34 mg/dL (7-18); CARBON DIOXIDE,CO2 26 mmol/L (21-32); CHLORIDE,CL 103 mEq/L (98-106); CREATININE 1.5 mg/dL (0.6-1.0); GLUCOSE RANDOM 105 mg/dL (75-99); POTASSIUM,K 3.8 mEq/L (3.5-5.0); PROTEIN TOTAL,TP 7.5 g/dL (6.4-8.2); SODIUM,NA 141 mEq/L (136-145)
[2025-09-29 15:03] LABS: OCCULT BLOOD,URINE NEGATIVE (NEGATIVE)
[2025-09-29 15:11] LABS: INR 4.11 (0.92-1.18)
[2025-09-29 15:12] LABS: ESTIMATED GFR 35 mL/min (>=60)
[2025-09-29 15:36] VITALS: BP 158/72; PULSE 79
== END 2025-09-29 16:35 | disposition home or self-care (01) ==
LOC: CC.ED 14:08
DX: S86.911A Strain of unspecified muscle(s) and tendon(s) at lower leg level, right leg, initial encounter (principal); R79.1 Abnormal coagulation profile; I11.0 Hypertensive heart disease with heart failure; I50.9 Heart failure, unspecified; E66.9 Obesity, unspecified; Z90.49 Acquired absence of other specified parts of digestive tract; Z79.899 Other long term (current) drug therapy; Z79.01 Long term (current) use of anticoagulants; Z88.2 Allergy status to sulfonamides; Z88.8 Allergy status to other drugs, medicaments and biological substances; Z68.42 Body mass index [BMI] 45.0-49.9, adult; W18.30XA Fall on same level, unspecified, initial encounter
CPT/HCPCS: 36415; 70450; 71045; 73560-RT; 80053; 81003; 85025; 85610; 86140; 93005; 93010; 99284; 99285